=== PATIENT | female | born 1955 | race Caucasian/White ===

== ENCOUNTER → 2016-07-23 | Outpatient (CLI) | payer OTHER ==
[~2016-07-23] MED LIST: 'XANAX0.25 MG PO; ALDACTONE25 MG PO; ALDACTONE50 M1 PO; ALDACTONE50 MG PO; ALPRAZOLAM0.25 MG PO; ATARAX,VISTARIL50 MG PO; BENTYL10 MG PO; CEPHULAC10 GM/15 M PO; CORGARD20 MG PO; FUROSEMIDE20 MG PO; HYDR25T PO; HYDROCODONE BIT1 T11 PO; KEFLEX; KEFLEX500 MG PO; KENALOG 0.1%80 GM PO; KLOR-CON 1010 ME1 PO; LACTULOSE10 GM/151 PO; LASIX20 MG PO; MYCELEX1% TP; MYCOLOG CREAM 115 GM PO; NADOLOL20 MG PO; NAPROSYN500 MG PO; NEURONTIN300 MG PO; NEURONTIN600 MG PO; NEURONTIN800 MG PO; NICODERM21 MG/24 H TD; NKHM; OXYCODONE AND A1 TA4 PO; PREVALITE4 GM/5.5 G PO; PRILOSEC20 MG PO; PROTONIX40 MG PO; PROVERA10 MG PO; RANITIDINE HCL150 M1 PO; RANITIDINE150 MG PO; SPIRONOLACTONE50 MG PO; VICODIN 500 MG-1 TAB PO; VICODIN ES 7501 TAB PO; VISTARIL25 MG PO; XANAX0.25 MG PO; XIFAXAN550 MG PO
== END | disposition home or self-care (01) ==
LOC: MAMMO 12:43
DX: R92.8 Other abnormal and inconclusive findings on diagnostic imaging of breast (principal)

== ENCOUNTER → 2016-07-28 | Day surgery (SDC) | payer OTHER ==
[2016-07-28 11:50] VITALS: BP 111/78
== END | disposition home or self-care (01) ==
LOC: SDC 07-27 18:15
DX: D24.2 Benign neoplasm of left breast (principal); J44.9 Chronic obstructive pulmonary disease, unspecified; K21.9 Gastro-esophageal reflux disease without esophagitis; F17.210 Nicotine dependence, cigarettes, uncomplicated; F41.9 Anxiety disorder, unspecified; K74.60 Unspecified cirrhosis of liver; F10.10 Alcohol abuse, uncomplicated; Z82.49 Family history of ischemic heart disease and other diseases of the circulatory system